=== PATIENT | female | born 2000 | race Two or more races ===

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

== ENCOUNTER 2022-08-07 12:22 | Emergency (ER) | payer MEDICAID ==
[~2022-08-07] VITALS: Ht 160 cm; Wt 99.9 kg
[2022-08-07 13:12] VITALS: BP 150/91
[2022-08-07] MEDS ORDERED: BACDST PO (13:55)
[2022-08-07] MEDS ORDERED: IBUP800T27 PO (13:55)
== END 2022-08-07 14:06 | disposition home or self-care (01) ==
LOC: ER 12:24
DX: N76.4 Abscess of vulva (principal)

== ENCOUNTER 2023-10-13 04:50 | Inpatient (IN) | payer MEDICAID ==
[~2023-10-13] VITALS: Ht 160 cm; Wt 95.8 kg
[~2023-10-13 04:50] MED LIST: BACDST PO; IBUP-1456 PO
[2023-10-13 05:54] LABS: Basophils # (auto) 0 10 ^3/uL (0-0.2); Basophils % (auto) 0.3 % (0.0-2.0); Eosinophils # (auto) 0 10 ^3/uL (0-0.8); Eosinophils % (auto) 0.3 % (0.0-7.0); Hematocrit 43.5 % (36.0-46.0); Hemoglobin 14.8 g/dL (12.2-16.2); Lymphocytes % (auto) 20.7 % (10.0-50.0); Mean Corpuscular Hemoglobin 29.9 pg (28.0-32.0); Mean Corpuscular Volume 87.8 fL (80.0-100.0); Monocytes # (auto) 0.6 10 ^3/uL (0-1.3); Monocytes % (auto) 6.5 % (0.0-12.0); Neutrophils % (auto) 72.2 % (37.0-80.0); Red Blood Cells 4.95 10^6/uL (4.0-5.20); Red Cell Distribution Width 12.7 % (11.8-14.3); White Blood Cell 9.7 10^3/uL (4.4-10.8)
[2023-10-13 06:13] LABS: Alanine Aminotransferase 18 U/L (7-40); Albumin 4.9 g/dL (3.2-4.8); Alkaline Phosphatase 90 U/L (46-116); Anion Gap 7 (5-15); Aspartate Aminotransferase 22 U/L (13-40); BUN/Creatinine Ratio 27.9 (10.0-20.0); Blood Urea Nitrogen 19 mg/dL (9-23); Carbon Dioxide 27 mmol/L (20-30); Chloride 105 mmol/L (98-107); Glucose 92 mg/dL (74-106); Lipase 36 U/L (12-53); Potassium 3.7 mmol/L (3.5-5.1); Sodium 139 mmol/L (136-145)
[2023-10-13 06:14] LABS: Bilirubin, Total 1.4 mg/dL (0.2-1.0); Total Protein 7.5 g/dL (5.7-8.2)
[2023-10-13 06:44] LABS: Urine Bacteria NONE SEEN /hpf (None Seen); Urine Blood 2+ /uL (Negative); Urine Clarity Clear (Clear); Urine Color Yellow (Yellow); Urine Mucus FEW (None Seen); Urine Protein, UAD TRACE (Negative); Urine Specific Gravity 1.032 (1.001-1.035); Urine WBC 14 /hpf (0 - 5)
[2023-10-13] MEDS ORDERED: PIPERACILLIN-TAZO 4.5GM 100 ML IV ONE (12:15)
[2023-10-13] MEDS ORDERED: ACETAMINOPHEN 325 MG TAB PO PRN (14:30)
[2023-10-13] MEDS ORDERED: SODIUM CHLORIDE 0.9% 1,000 ML IV SCH (14:30)
[2023-10-13] MEDS ORDERED: ONDANSETRON HCL 4 MG/2 ML VIAL IV PRN (14:30)
[2023-10-13] MEDS ORDERED: cefTRIAXone 1GM/50ML D5W 50 ML IV SCH (14:30)
[2023-10-13] MEDS ORDERED: NITROGLYCERIN 0.4 MG SL TAB SL PRN (14:30)
[2023-10-13] MEDS ORDERED: MORPHINE SULFATE INJ 2 MG/ml SYRG IV PRN (14:30)
[2023-10-13 18:10] VITALS: PULSE 73; RESP 18; O2SAT 99
[2023-10-13 18:28] VITALS: BP 118/74; PULSE 70; RESP 20; TEMP 98.4; O2SAT 100
[2023-10-13] MEDS: D5W 5% 1,000 ML IV SCH (18:28)
[2023-10-13 20:00] VITALS: BP 122/51; PULSE 78; RESP 18; TEMP 97.8; O2SAT 98
[2023-10-13] MEDS: metroNIDAZOLE 500MG/100ML 100 ML IV SCH (21:15)
[2023-10-13] MEDS: SODIUM CHLOR 0.9% PF (SALINE LOCK) 10ML VIAL/SYR IV SCH (21:15)
[2023-10-13 22:00] VITALS: BP 122/51; PULSE 78; RESP 18; TEMP 97.8; O2SAT 98
[2023-10-14] VITALS (8 sets, daily range): BP systolic 22–147; BP diastolic 45–89; PULSE 76–111; RESP 14–21; TEMP 97.9–98.7; O2SAT 95–100
[2023-10-14] MEDS: metroNIDAZOLE 500MG/100ML 100 ML IV SCH ×3 (06:00→21:46)
[2023-10-14] MEDS: SODIUM CHLOR 0.9% PF (SALINE LOCK) 10ML VIAL/SYR IV SCH ×3 (06:00→21:46)
[2023-10-14] MEDS: D5W 5% 1,000 ML IV SCH ×3 (06:05→11:23)
[2023-10-14 06:06] LABS: Basophils # (auto) 0 10 ^3/uL (0-0.2); Basophils % (auto) 0.6 % (0.0-2.0); Eosinophils # (auto) 0 10 ^3/uL (0-0.8); Eosinophils % (auto) 0.6 % (0.0-7.0); Hematocrit 43.4 % (36.0-46.0); Hemoglobin 14.8 g/dL (12.2-16.2); Lymphocytes # (auto) 1.8 10 ^3/uL (0.4-5.4); Lymphocytes % (auto) 26.1 % (10.0-50.0); Mean Corpuscular Hemoglobin 30.1 pg (28.0-32.0); Mean Corpuscular Hgb Conc. 34.2 g/dL (32.0-36.0); Mean Corpuscular Volume 88.2 fL (80.0-100.0); Monocytes # (auto) 0.5 10 ^3/uL (0-1.3); Monocytes % (auto) 7.3 % (0.0-12.0); Neutrophils # (auto) 4.6 10 ^3/uL (1.6-8.6); Neutrophils % (auto) 65.4 % (37.0-80.0); Nucleated Red Blood Cells % 0.3 %; Red Blood Cells 4.92 10^6/uL (4.0-5.20); Red Cell Distribution Width 12.6 % (11.8-14.3)
[2023-10-14 06:27] LABS: Alanine Aminotransferase 35 U/L (7-40); Albumin 4.4 g/dL (3.2-4.8); Alkaline Phosphatase 82 U/L (46-116); Anion Gap 9 (5-15); Aspartate Aminotransferase 30 U/L (13-40); BUN/Creatinine Ratio 21.8 (10.0-20.0); Blood Urea Nitrogen 12 mg/dL (9-23); Calcium 9.3 mg/dL (8.5-10.1); Carbon Dioxide 25 mmol/L (20-30); Chloride 106 mmol/L (98-107); Cholesterol 131 mg/dL (< 200); Glucose 91 mg/dL (74-106); LDL Cholesterol 86 mg/dL (< 100); Potassium 3.6 mmol/L (3.5-5.1); Sodium 140 mmol/L (136-145); Triglycerides 62 mg/dL (< 150)
[2023-10-14 06:28] LABS: Bilirubin, Total 2.1 mg/dL (0.2-1.0); HDL Cholesterol 29 mg/dL (40-59); Total Protein 6.7 g/dL (5.7-8.2)
[2023-10-14] MEDS: PANTOPRAZOLE 40 MG/10 ML VIAL INJ IV SCH (09:13)
[2023-10-14] MEDS ORDERED: MEPERIDINE HCL (25 MG/ML) 1ML VIAL ONE (11:54)
[2023-10-14] MEDS ORDERED: fentaNYL CITRATE 100 MCG/2 ML VL ONE (11:54)
[2023-10-14] MEDS ORDERED: MIDAZOLAM HCL 2MG/2ML 2ml VIAL (1mg/ml) ONE (11:54)
[2023-10-14] MEDS ORDERED: GLYCOPYRROLATE 0.2 MG/ML 1ML VIAL ONE (11:55)
[2023-10-14] MEDS ORDERED: ROCURONIUM 10MG/ML 10ML VIAL IV ONE (11:55)
[2023-10-14] MEDS ORDERED: NEOSTIGMINE 1 MG/ML INJ (10mg/10ML VIAL) ONE (11:55)
[2023-10-14] MEDS ORDERED: SODIUM CHLORIDE LOCK 10 ML ONE (11:55)
[2023-10-14] MEDS ORDERED: ONDANSETRON HCL 4 MG/2 ML VIAL ONE (11:55)
[2023-10-14] MEDS ORDERED: PROPOFOL 10 MG/ML 20 ML IV ONE (11:55)
[2023-10-14] MEDS ORDERED: LIDOCAINE 1% HCL (LOCAL ANESTH.) INJ 20ML MDV ONE (11:58)
[2023-10-14] MEDS ORDERED: HYDROmorphone HCL 2 MG/ML VL/or syr IV PRN (12:15)
[2023-10-14] MEDS ORDERED: METOCLOPRAMIDE HCL 5MG/ml INJ 2ml VIAL IV PRN (12:15)
[2023-10-14] MEDS ORDERED: MORPHINE SULFATE INJ 2 MG/ml SYRG IV PRN (12:15)
[2023-10-14] MEDS ORDERED: ceFAZolin 2 GM/D5W100ml 100 ML IV ONE (12:25)
[2023-10-14] MEDS ORDERED: KETOROLAC TROMETH 60MG/2ML VIAL ONE (13:38)
[2023-10-14] MEDS ORDERED: HYDROmorphone HCL 2 MG/ML VL/or syr ONE (14:12)
[2023-10-14] MEDS: HYDROmorphone HCL 2 MG/ML VL/or syr IV PRN ×3 (14:15→14:37)
[2023-10-15] MEDS: MORPHINE SULFATE INJ 2 MG/ml SYRG IM PRN ×2 (04:09→08:37)
[2023-10-15 04:28] VITALS: BP 125/58; PULSE 91; RESP 21; TEMP 97.8; O2SAT 97
[2023-10-15] MEDS: SODIUM CHLOR 0.9% PF (SALINE LOCK) 10ML VIAL/SYR IV SCH ×2 (05:15→14:00)
[2023-10-15] MEDS: metroNIDAZOLE 500MG/100ML 100 ML IV SCH ×2 (05:15→14:00)
[2023-10-15 06:22] LABS: Basophils # (auto) 0 10 ^3/uL (0-0.2); Basophils % (auto) 0.1 % (0.0-2.0); Eosinophils # (auto) 0 10 ^3/uL (0-0.8); Hematocrit 39.4 % (36.0-46.0); Hemoglobin 13.4 g/dL (12.2-16.2); Lymphocytes # (auto) 1.8 10 ^3/uL (0.4-5.4); Lymphocytes % (auto) 16.6 % (10.0-50.0); Mean Corpuscular Hemoglobin 29.9 pg (28.0-32.0); Mean Corpuscular Volume 87.9 fL (80.0-100.0); Monocytes # (auto) 0.8 10 ^3/uL (0-1.3); Monocytes % (auto) 7.2 % (0.0-12.0); Neutrophils # (auto) 8.4 10 ^3/uL (1.6-8.6); Neutrophils % (auto) 76.1 % (37.0-80.0); Red Blood Cells 4.48 10^6/uL (4.0-5.20); Red Cell Distribution Width 12.6 % (11.8-14.3); White Blood Cell 11.1 10^3/uL (4.4-10.8)
[2023-10-15 06:39] LABS: Alanine Aminotransferase 59 U/L (7-40); Alkaline Phosphatase 78 U/L (46-116); Anion Gap 10 (5-15); Aspartate Aminotransferase 52 U/L (13-40); Bilirubin, Total 2.4 mg/dL (0.2-1.0); Blood Urea Nitrogen 7 mg/dL (9-23); Calcium 9.1 mg/dL (8.5-10.1); Carbon Dioxide 25 mmol/L (20-30); Chloride 105 mmol/L (98-107); Glucose 85 mg/dL (74-106); Potassium 3.7 mmol/L (3.5-5.1); Sodium 140 mmol/L (136-145); Total Protein 6.1 g/dL (5.7-8.2)
[2023-10-15 09:00] VITALS: BP 98/42; PULSE 83; RESP 14; TEMP 97.9; O2SAT 98
[2023-10-15] MEDS: PANTOPRAZOLE 40 MG/10 ML VIAL INJ IV SCH (10:31)
[2023-10-15] MEDS ORDERED: IBUP-1455 PO (11:57)
[2023-10-15] MEDS ORDERED: ACE3T PO (11:57)
[2023-10-15] MEDS ORDERED: CEPH250C PO (11:57)
[2023-10-15 12:59] VITALS: BP 104/58; PULSE 67; RESP 14; TEMP 98.4; O2SAT 97
[2023-10-15 13:05] VITALS: TEMP 36.9
== END 2023-10-15 14:21 | disposition home or self-care (01) | DRG 263 ==
LOC: ER 04:50 → OVERFLOW 15:38 → EAST 18:17
PROVIDERS: ADMIT Internal Medicine Geriatric Medicine; ATTEND Internal Medicine Geriatric Medicine
PROC: 0FT44ZZ Resection of Gallbladder, Percutaneous Endoscopic Approach (ICD-10-PCS; principal; 2023-10-14 12:34)
DX: K81.0 Acute cholecystitis (principal); E66.9 Obesity, unspecified; N39.0 Urinary tract infection, site not specified; Z68.34 Body mass index [BMI] 34.0-34.9, adult
CPT/HCPCS: 36415; 76705; 78226; 80053; 80061; 81001; 81025; 83690; 85025; C9113; G0378; J1885; J2001; J2250; J2405; J2704; J3490